=== PATIENT | female | born 1945 | race Two or more races ===

== ENCOUNTER → 2018-04-25 | Outpatient (CLI) | payer OTHER | END | disposition home or self-care (01) | LOC: MAMO-SONO 11:34 | DX: E04.1 Nontoxic single thyroid nodule (principal) ==

== ENCOUNTER 2018-05-02 12:29 | Outpatient (CLI) | payer OTHER | END 2018-05-02 12:42 | disposition home or self-care (01) | LOC: MAMO-SONO 12:29 | DX: Z12.31 Encounter for screening mammogram for malignant neoplasm of breast (principal); N64.89 Other specified disorders of breast ==

== ENCOUNTER → 2018-11-20 | Outpatient (CLI) | payer OTHER | END | disposition home or self-care (01) | LOC: SONOGRAMA 11:04 → MAMO-SONO 11:45 | DX: E04.0 Nontoxic diffuse goiter (principal); E04.2 Nontoxic multinodular goiter ==

== ENCOUNTER 2018-12-17 12:18 | Outpatient (CLI) | payer OTHER | END 2018-12-17 17:00 | disposition home or self-care (01) | LOC: MAMO-SONO 12:18 | DX: N60.11 Diffuse cystic mastopathy of right breast (principal); N60.12 Diffuse cystic mastopathy of left breast ==

== ENCOUNTER 2019-01-24 11:03 | Outpatient (CLI) | payer OTHER | END 2019-01-24 11:14 | disposition home or self-care (01) | LOC: MAMO-SONO 11:03 | DX: Z12.31 Encounter for screening mammogram for malignant neoplasm of breast (principal); Z87.898 Personal history of other specified conditions; N60.11 Diffuse cystic mastopathy of right breast; N60.12 Diffuse cystic mastopathy of left breast ==

== ENCOUNTER 2019-03-27 09:08 | Outpatient (CLI) | payer OTHER | END 2019-03-27 11:30 | disposition home or self-care (01) | LOC: SONOGRAMA 09:08 | DX: E04.1 Nontoxic single thyroid nodule (principal); E04.8 Other specified nontoxic goiter ==

== ENCOUNTER 2021-11-21 13:08 | Outpatient (CLI) | payer OTHER | END 2021-11-21 13:23 | disposition home or self-care (01) | LOC: MAMO-SONO 13:08 | PROVIDERS: ATTEND General Practice | DX: Z12.31 Encounter for screening mammogram for malignant neoplasm of breast (principal); Z12.39 Encounter for other screening for malignant neoplasm of breast; M81.0 Age-related osteoporosis without current pathological fracture ==

== ENCOUNTER → 2021-11-23 13:58 | Outpatient (CLI) | payer OTHER | END | disposition home or self-care (01) | LOC: NUCLEAR 13:58 | PROVIDERS: ATTEND General Practice | DX: M81.0 Age-related osteoporosis without current pathological fracture (principal) ==